=== PATIENT | female | born 1975 | race Caucasian/White ===

== ENCOUNTER 2017-04-16 17:36 | Inpatient (IN) | payer OTHER ==
[~2017-04-16] VITALS: Ht 167.6 cm; Wt 70.0 kg
[2017-04-16 20:19] VITALS: PULSE 69; Ht 167.6 cm; Wt 70.0 kg
[2017-04-16 20:29] VITALS: BP 120/72; RESP 20
[2017-04-17] VITALS (11 sets, daily range): BP systolic 103–129; BP diastolic 61–70; PULSE 64–82; RESP 18–19
[2017-04-17] MEDS ORDERED: ACETAMINOPHEN 325 MG TAB PO PRN (01:30)
[2017-04-17] MEDS ORDERED: DOCUSATE SODIUM 100 MG CAP PO PRN (01:30)
[2017-04-17] MEDS ORDERED: NACL 0.9% 3 ML SYG IV SCH (01:30)
[2017-04-17] MEDS ORDERED: BISACODYL (EC) 5 MG TAB PO PRN (01:30)
[2017-04-17 02:21] LABS: CREATINE KINASE 34 IU/L (23-200)
[2017-04-17 02:34] LABS: CK-MB 0.31 ng/ml (0.0-2.4)
[2017-04-17 03:06] LABS: TROPONIN-I < 0.012 ng/ml (0.00-0.12)
[2017-04-17] MEDS: KETOROLAC 30 MG INJ IV PRN ×3 (05:04→18:17)
[2017-04-17] MEDS: FAMOTIDINE 20 MG TAB PO SCH ×2 (05:45→20:17)
--- NOTE | 2017-04-17 09:10 | HP ---
Date/Time of Note Date/Time of Note DATE: 04/17/17 TIME: 09:00 Assessment/Plan VTE Prophylaxis VTE Prophylaxis Intervention: SCD's Lines/Catheters IV Catheter Type (from Nrs): Peripheral IV Assessment/Plan Chief Complaint/Hosp Course This is a 40-year-old female being admitted to the telemetry floor for: #1 persistent headache: Complex migraine versus intracranial pathology versus anxiety versus other etiology. At the current time imaging studies appear within normal values except for an A1 segment anomaly seen on the CT of the head please see report for further details. On my exam she does not have any neurological deficits. She does report persistent headache. Will provide her right now with Toradol to see if she will get any pain relief. Will obtain an MRI of the brain with and without gadolinium. Will consult neurology for further imaging study recommendations. #2 prediabetes: We will check a hemoglobin A1c. #3 anxiety: Currently not taking any medications. #4 DVT and GI prophylaxis SCDs, acid haris Further treatment strategy will be implemented as per the clinical course Problems: HPI/ROS Admit Date/Time Admit Date/Time Apr 16, 2017 at 20:00 Hx of Present Illness Chief complaint: Headache 6 months This is a 41-year-old female who originally presented to [facility] with a headache which began 6 months ago and then was subsequently transferred to [facility]. Patient states that prior to 6 months ago she never had any headaches. She states that in the past she has been to [facility] 2 times after sustaining a fall with the first one being in September 2015 which at that time showed a CAT scan that was unremarkable. She also had a fall and hit her head approximately 6-7 months ago but did not get a CAT scan at that time. Patient also has a history of anxiety. Patient states that she has been having a headache constantly during the last several months. She states that is sharp to a pressure type sensation to the right head. She says that encompasses a total right head. For the last week she had numbness and tingling of her right foot and off and on of her right hand. Patient states that this morning she felt confused and she has been having difficulty at work concentrating and with memory issues. She also has been having trouble with numbers and words for the past 1-2 weeks. She also feels clumsy at times. She denies any photophobia or sound sensitivity and denies any tearing of her eyes. Allergies: NKDA Medications: None ROS Const: As per HPI Eyes : No pain discharge or redness or change in visual acuity ENT: No pain, sore throat, congestion, congestion, dysphagia or discharge Respiratory: No shortness of breath, cough, sputum, wheezing, or pleuritic pain Cardiovascular: No chest pain, palpitation, PND, or edema GI : no change in appetite, abdominal pain, nausea, vomiting, diarrhea, constipation, or change in the color his stool Genitourinary: No dysuria, hematuria, flank pain , discharge or CVA tenderness Musculoskeletal: No joint pain, back pain, neck pain, restricted range of motion in neck or joints Skin: No rash, bruising or hives Neuro: As per HPI Endocrine: No polyuria, polydipsia, temperature intolerance Psych: No hallucination, depression, anxiety or suicidal ideation PMH/Family/Social Past Medical History Anxiety, prediabetic Past Surgical History Past Surgical Hx: no surgical history Family History Significant Family History: no pertinent family hx Social History Alcohol Use: rarely (1 cigarette a day) Smoking Status: Current some day smoker Exam/Review of Systems Vital Signs Vitals Vital Signs Date Time Temp Pulse Resp B/P Pulse Ox O2 Delivery O2 Flow Rate FiO2 04/17/17 08:30 64 04/17/17 07:58 98.6 18 107/64 97 Intake and Output 04/16/17 04/16/17 04/17/17 15:00 23:00 07:00 Intake Total 350 ml Balance 350 ml Exam Exam General: Patient is a well-developed female lying in bed, states she does have a right-sided headache HEENT: Atraumatic, normocephalic. The pupils are equal, round and reactive. Extraocular motor are intact Neck: Supple with full range of motion. No rigidity or meningismus Chest: Nontender Lungs: Clear to auscultation bilaterally no crackles rales or wheezing Heart: Normal S1-S2, Regular rhythm and rate. Abdomen: Soft , nontender, nondistended , bowel sounds are present. No guarding no rebound tenderness , No masses or organomegaly. 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, otherwise no significant abnormalities CT of the head without contrast: Normal-appearing brain, mild sinus disease EKG: Normal sinus rhythm at approximately 7-[address] or T-wave abnormalities noted Medications Medications Current Medications Ondansetron HCl (Zofran Inj) 4 mg Q6H PRN IV NAUSEA AND/OR VOMITING; Start 04/17 at 01:30 Acetaminophen (Tylenol Tab) 650 mg Q6H PRN PO PAIN LEVEL 1-3 OR FEVER Last administered on 04/17/17 04:42; Admin Dose 650 MG; Start 04/17/17 at 01:30 Docusate Sodium (Colace) 100 mg Q12H PRN PO CONSTIPATION; Start 04/17/17 at 01: 30 Bisacodyl (Dulcolax) 5 mg DAILY PRN PO CONSTIPATION; Start 04/17/17 at 01:30 Famotidine (Pepcid) 20 mg Q12 PO Last administered on 04/17/17 05:45; Admin Dose 20 MG; Start 04/17/17 at 06:00 Ketorolac Tromethamine (Toradol) 30 mg Q6H PRN IV PAIN Last administered on 04/17 05:04; Admin Dose 30 MG; Start 04/17/17 at 05:00; Stop 04/18/17 at 05:00 VINAYAK ARRINGTON Apr 17, 2017 09:10
[2017-04-17 09:17] LABS: CREATINE KINASE 28 IU/L (23-200)
[2017-04-17 09:30] LABS: CK-MB 0.23 ng/ml (0.0-2.4)
[2017-04-17 09:34] LABS: TROPONIN-I < 0.012 ng/ml (0.00-0.12)
--- NOTE | 2017-04-17 12:04 | CONS ---
Date/Time of Note Date/Time of Note DATE: 04/17/17 TIME: 11:58 Assessment/Plan Assessment/Plan Chief Complaint/Hosp Course 41 year old female with history of anxiety, diffuse pain/ fibromyalgia? 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 Recommendations: basic rheumatologic labs ESR, CRP, Anti- Ds DNA, Rheumatoid Factor, Antiphospholipid MRI Brain w w/o contrast may benefit from occipital nerve block, trigger point injections w pain management start low dose Topamax 25 mg daily will need to establish care and follow up with neurology as outpatient as well Problems: Consultation Date/Type/Reason Admit Date/Time Apr 16, 2017 at 20:00 Date of Consultation: Apr 17, 2017 Type of Consultation: Neurology Reason for Consultation CHAVEZ 6 monhs Referring Provider: VINAYAK ARRINGTON Hx of Present Illness 41 year old female with history of chronic diffuse pain was receiving outpatient rheumatology work up p/w headaches since this past October. She reports her headaches began after starting a new job back in October began having pain in the right side of her neck and experiences pain usually daily throughout her head a/w blurred vision with some numbness on right side of her body. 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 Yesterday while at work she began having difficulty concentrating, reported trouble with numbers and words past couple weeks. No fevers/ recent illness/sick contacts. Further imaging pending. 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, DTR's symmetric (right occipital tenderness), nl mental status, nl speech, nl strength Results Results 24 hrs Laboratory Tests Test 04/17/17 01:55 04/17/17 07:53 Creatine Kinase 34 28 Creatine Kinase Index 0.9 0.8 Creatinine Kinase MB (Mass) 0.31 0.23 Troponin I < 0.012 < 0.012 Medications Medications Current Medications Ondansetron HCl (Zofran Inj) 4 mg Q6H PRN IV NAUSEA AND/OR VOMITING; Start 04/17 at 01:30 Acetaminophen (Tylenol Tab) 650 mg Q6H PRN PO PAIN LEVEL 1-3 OR FEVER Last administered on 04/17/17 04:42; Admin Dose 650 MG; Start 04/17/17 at 01:30 Docusate Sodium (Colace) 100 mg Q12H PRN PO CONSTIPATION; Start 04/17/17 at 01: 30 Bisacodyl (Dulcolax) 5 mg DAILY PRN PO CONSTIPATION; Start 04/17/17 at 01:30 Famotidine (Pepcid) 20 mg Q12 PO Last administered on 04/17/17 05:45; Admin Dose 20 MG; Start 04/17/17 at 06:00 Ketorolac Tromethamine (Toradol) 30 mg Q6H PRN IV PAIN Last administered on 04/17 05:04; Admin Dose 30 MG; Start 04/17/17 at 05:00; Stop 04/18/17 at 05:00 TRINI ZIEGLER MD Apr 17, 2017 12:04
--- NOTE | 2017-04-17 15:06 | RADRPT ---
Echocardiogram Report Patient Name: JCARLOS WHITAKER Gender: Female Date: 1975 Study Date: 17-Apr-2017 Project Crew Worker: Mony Abrams [facility] Location: [id number] Ref. Physician: VINAYAK ARRINGTON Quality: Good Procedures: Transthoracic echocardiogram with complete 2D, M-Mode, and doppler examination. Indications: possible Transient Ischemic Attack. 2D/M Mode Doppler Measurement Value Normal Ranges Measurement Value Normal Ranges LVIDd 2D 4.8 3.5 - 5.6 cm AV Peak Stephen 1.2 m/sec LVIDs 2D 3.4 2.1 - 4.1 cm AV Peak PG 5.7 mmHg LVPWd 2D 0.7 0.6 - 1.1 cm LVOT Peak Stephen 1.0 m/sec IVSd 2D 0.7 0.6 - 1.1 cm LVOT Peak PG 3.7 mmHg AoR Diam 2D 2.5 2.0 - 3.7 cm MV E Peak Stephen 0.9 m/sec EDV 2D 109.1 cm3 MV A Peak Stephen 0.7 m/sec ESV 2D 39.1 cm3 MV E/A 1.3 LA Dimen 2D 2.7 2.3 - 4.0 cm MV Decel Time 205 msec MV Decel Dickson 4 MV E/A 1.3 TR Peak Stephen 1.6 m/sec TR Peak PG 9.7 mmHg RVSP 13.0 mmHg Findings Left Ventricle: Normal left ventricular systolic function. Normal left ventricular cavity size. Normal left ventricular wall thickness. Ejection fraction is visually estimated at 60 %. Tissue Doppler/Mitral Doppler indices are within normal limits. Right Ventricle: Normal right ventricular size. Normal right ventricular systolic function. Left Atrium: The left atrium is normal in size. Right Atrium: The right atrium is normal in size. Mitral Valve: Normal appearance and function of the mitral valve with trace physiologic regurgitation. Aortic Valve: Normal appearance of the aortic valve. No significant aortic stenosis or insufficiency. Tricuspid Valve: Normal appearance of the tricuspid valve. Estimated peak PA systolic pressure 13 mmHg. There is trace tricuspid regurgitation. Pulmonic Valve: Normal pulmonic valve appearance. There is trace pulmonic regurgitation. Pericardium: Normal pericardium with no significant pericardial effusion. Aorta: Normal aortic root. IVC: Normal size and normal respiratory collapse consistent with normal right atrial pressure. Conclusions 1.Normal left ventricular systolic function. Normal left ventricular cavity size. Normal left ventricular wall thickness. Ejection fraction is visually estimated at 60 %. Tissue Doppler/Mitral Doppler indices are within normal limits. 2.Normal right ventricular size. Normal right ventricular systolic function. 3.The left atrium is normal in size. 4.The right atrium is normal in size. 5.No significant valvular stenosis or regurgitation seen. 6.Normal pericardium with no significant pericardial effusion. Electronically Signed By: Amando Omalley 17-Apr-2017 15:06:40 -0700 Patient Name: JCARLOS WHITAKER Study Date: 17-Apr-2017 [id number]
--- NOTE | 2017-04-17 16:42 | QN ---
Documentation Comment S: Patient seen and examined at bedside. She states the Toradol has been helping her headache slightly but still right sided and constant with numbness of right face and RUE as well as R foot. Does admit to blurred vision bilaterally but denies any difficulty with eating. Headache began about 6-7 months after a mechanical fall. She denies any LOC. She has been told in the past she should be seen by Rheumatology but due to insurance issues, was never able to follow up. Denies any chest pain, shortness of breath, vomiting, or abdominal issues. O: VSS General: awake and alert, fatigued HEENT: EOMI intact, no tenderness with palpation of temples CVS: regular rate and rhythm Lungs: CTA b/l, no murmurs Ext: moving all extremities neuro: diminished sensation right UE A/P 1. 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 Will try to avoid opioids secondary to causing rebound headaches - ESR and CRP negative. - Rheum workup pending - TSH ordered CHANDRAKANT HARE MD Apr 17, 2017 16:42
[2017-04-17] MEDS: ONDANSETRON 4 MG INJ IV PRN (18:17)
[2017-04-17] MEDS: TOPIRAMATE 25 MG TAB PO SCH (20:17)
[2017-04-17] MEDS ORDERED: CAFFEINE 200 MG PO ONE ×2 (20:30→22:00)
[2017-04-17] MEDS ORDERED: CAFFEINE 200 MG PO PRN (22:00)
[2017-04-18] VITALS (10 sets, daily range): BP systolic 96–115; BP diastolic 57–76; PULSE 62–84; RESP 16–18
[2017-04-18] MEDS: ONDANSETRON 4 MG INJ IV PRN (04:45)
[2017-04-18] MEDS: KETOROLAC 30 MG INJ IV PRN ×2 (04:47→11:37)
[2017-04-18 08:33] LABS: BASOPHILS % 0.4 % (0.0-2.0); EOSINOPHILS # 0.1 10^3/ul (0.0-0.5); EOSINOPHILS % 1.2 % (0.0-7.0); HEMATOCRIT 35.8 % (37.0-47.0); HEMOGLOBIN 11.4 g/dl (12.0-16.0); LYMPHOCYTES # 2.6 10^3/ul (0.8-2.9); LYMPHOCYTES % 34.3 % (15.0-51.0); MEAN CORPUSCULAR HEMOGLOBIN 29.1 pg (29.0-33.0); MEAN CORPUSCULAR HGB CONC 31.8 g/dl (32.0-37.0); MEAN CORPUSCULAR VOLUME 91.3 fl (82.0-101.0); MEAN PLATELET VOLUME 9.8 fl (7.4-10.4); MONOCYTE # 0.4 10^3/ul (0.3-0.9); MONOCYTES % 4.6 % (0.0-11.0); NEUTROPHILS % 59.2 % (39.0-77.0); PLATELET COUNT 327 10^3/UL (140-415); RED BLOOD COUNT 3.92 10^6/ul (4.20-5.40); WHITE BLOOD COUNT 7.6 10^3/ul (4.8-10.8)
[2017-04-18] MEDS: FAMOTIDINE 20 MG TAB PO SCH ×2 (08:43→20:14)
[2017-04-18 09:07] LABS: ALBUMIN 3.7 g/dl (3.3-4.9); ALBUMIN/GLOBULIN RATIO 1.19; BILIRUBIN,INDIRECT 0.2 mg/dl (0-1.1); BILIRUBIN,TOTAL 0.2 mg/dl (0.2-1.3); CALCIUM 9.2 mg/dl (8.4-10.2); CHOL/HDL RATIO 3.4 RATIO; CREATININE 0.77 mg/dl (0.44-1.00); MAGNESIUM 2.1 mg/dl (1.7-2.5); POTASSIUM 4.2 mmol/L (3.5-5.1); TOTAL PROTEIN 6.8 g/dl (6.1-8.1)
[2017-04-18 09:33] LABS: THYROID STIMULATING HORMONE 2.25 MIU/L (0.465-4.680)
--- NOTE | 2017-04-18 11:50 | CONS ---
Date/Time of Note Date/Time of Note DATE: 04/18/17 TIME: 11:48 Consult Date/Type/Reason Admit Date/Time Apr 16, 2017 at 20:00 Initial Consult Date 04/17/17 Type of Consultation: Neurology Reason for Consultation intractable headaches x 6 mo. 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, DTR's symmetric (right occipital tenderness), nl mental status, nl speech, nl strength Results/Medications Result Diagram: 04/18/17 0804 04/18/17 0804 Results 24 hrs Laboratory Tests Test 04/17/17 12:47 04/17/17 13:00 04/18/17 08:04 C-Reactive Protein < 0.5 Erythrocyte Sedimentation Rate 12 White Blood Count 7.6 Red Blood Count 3.92 L Hemoglobin 11.4 L Hematocrit 35.8 L Mean Corpuscular Volume 91.3 Mean Corpuscular Hemoglobin 29.1 Mean Corpuscular Hemoglobin Concent 31.8 L Red Cell Distribution Width 13.0 Platelet Count 327 Mean Platelet Volume 9.8 Neutrophils % 59.2 Lymphocytes % 34.3 Monocytes % 4.6 Eosinophils % 1.2 Basophils % 0.4 Nucleated Red Blood Cells % 0.0 Neutrophils # (Manual) 4.5 Lymphocytes # 2.6 Monocytes # 0.4 Eosinophils # 0.1 Basophils # 0.0 Nucleated Red Blood Cells # 0.0 Sodium Level 137 Potassium Level 4.2 Chloride Level 109 Carbon Dioxide Level 21 Anion Gap 11 Blood Urea Nitrogen 14 Creatinine 0.77 Glucose Level 97 Hemoglobin A1c 5.1 Calcium Level 9.2 Magnesium Level 2.1 Total Bilirubin 0.2 Direct Bilirubin 0.00 Indirect Bilirubin 0.2 Aspartate Amino Transf (AST/SGOT) 29 Alanine Aminotransferase (ALT/SGPT) 18 Alkaline Phosphatase 39 L Total Protein 6.8 Albumin 3.7 Globulin 3.10 Albumin/Globulin Ratio 1.19 Triglycerides Level 73 Cholesterol Level 177 LDL Cholesterol, Calculated 111 HDL Cholesterol 51 Cholesterol/HDL Ratio 3.4 Thyroid Stimulating Hormone (TSH) 2.250 Medications Current Medications Ondansetron HCl (Zofran Inj) 4 mg Q6H PRN IV NAUSEA AND/OR VOMITING Last administered on 04/18/17 04:45; Admin Dose 4 MG; Start 04/17/17 at 01:30 Acetaminophen (Tylenol Tab) 650 mg Q6H PRN PO PAIN LEVEL 1-3 OR FEVER Last administered on 04/17/17 04:42; Admin Dose 650 MG; Start 04/17/17 at 01:30 Docusate Sodium (Colace) 100 mg Q12H PRN PO CONSTIPATION; Start 04/17/17 at 01: 30 Bisacodyl (Dulcolax) 5 mg DAILY PRN PO CONSTIPATION; Start 04/17/17 at 01:30 Famotidine (Pepcid) 20 mg Q12 PO Last administered on 04/18/17 08:43; Admin Dose 20 MG; Start 04/17/17 at 06:00 Topiramate (Topamax) 25 mg QHS PO Last administered on 04/17/17 20:17; Admin Dose 25 MG; Start 04/17/17 at 21:00 Ketorolac Tromethamine (Toradol) 30 mg Q6H PRN IV PAIN Last administered on 04/18 11:37; Admin Dose 30 MG; Start 04/18/17 at 07:35; Stop 04/21/17 at 07:34 Acetaminophen/ Butalbital/ Caffeine (Fioricet) 1 tab Q6H PRN PO PAIN; Start 04/18/17 at 10:30 Assessment/Plan Chief Complaint/Hosp Course 41 year old female with history of anxiety, diffuse pain/ fibromyalgia? 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 Will give her a dose of Decadron 10 mg x1, Reglan 10 mg x1, and IV Depakote 1 gram for acute migraine treatment Recommendations: basic rheumatologic labs ESR, CRP (wnl) Anti- Ds DNA, Rheumatoid Factor, Antiphospholipid MRI Brain w w/o contrast pending may benefit from occipital nerve block, trigger point injections w pain management start low dose Topamax 25 mg daily will recommend increase in a week to 50 mg qhs if tolerating will need to establish care and follow up with neurology as outpatient as well Problems: TRINI ZIEGLER MD Apr 18, 2017 11:50
[2017-04-18] MEDS ORDERED: DEXAMETHASONE 10 MG/ML 1 ML INJ IV ONE (12:00)
[2017-04-18] MEDS ORDERED: VALPROATE INJ 1,000 MG in SOD CHLORIDE 0.9% 100 ML IVPB SCH (13:00)
[2017-04-18] MEDS ORDERED: METOCLOPRAMIDE 10 MG INJ IV SCH (13:00)
[2017-04-18] MEDS ORDERED: DEXAMETHASONE 10 MG/ML 1 ML INJ IV SCH ×2 (13:00→14:30)
[2017-04-18] MEDS ORDERED: LORAZEPAM 2 MG INJ IV ONE (15:00)
--- NOTE | 2017-04-18 16:47 | RADRPT ---
PROCEDURE: MR Brain with and without contrast. CLINICAL INDICATION: Headache and memory loss. History of trauma 1 year ago. TECHNIQUE: An MRI of the brain was performed on a 1.5 michael scanner utilizing the following sequen jamal: Sagittal and axial T1 weighted, axial T2 weighted, coronal GRE, axial diffusion weighted with A DC mapping, and post contrast axial and coronal T1 weighted and axial FLAIR. 10 ml of Magnevist was given intravenously without complication. COMPARISON: None. FINDINGS: No evidence of restricted diffusion to suggest acute or early subacute ischemic infarction. No evide nce of pathologic enhancement of the brain parenchyma, leptomeninges or dura. No hypointense signal abnormalities are seen on the GRE images to suggest the presence of blood degr adation products. The brain parenchyma is normal in signal intensity and morphology with preservation of chadwick white di fferentiation. The ventricles and subarachnoid spaces are age-appropriate in size. No evidence of intracranial hemorrhage, edema, mass effect, or shift. Mucosal thickening and mucus retention cyst/polyp in the left maxillary sinus. The posterior fossa contents, brainstem, craniocervical junction, seventh - eighth cranial nerve com plexes, orbits, remaining paranasal sinuses, and pituitary axis are unremarkable. No calvarial lesio n identified. Normal flow voids are visible in the proximal intracranial arteries and dural sinuses, indicating pa tency. IMPRESSION: 1. Normal pre and post-contrast MRI of the brain. RPTAT:AAJJ Physician Jatin Date Time Electronically viewed and signed by Physician Jatin on 04/18/2017 16:47 [place]/
--- NOTE | 2017-04-18 17:23 | PN ---
Date/Time of Note Date/Time of Note DATE: 04/18/17 TIME: 17:13 Assessment/Plan VTE Prophylaxis VTE Prophylaxis Intervention: SCD's Lines/Catheters IV Catheter Type (from Nrsg): Saline Lock Assessment/Plan Assessment/Plan 1. intractable headaches - neurology on board and recommendations appreciated. 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 - Rheum workup pending - TSH normal Subjective 24 Hr Interval Summary Free Text/Dictation Patient still experiencing headaches with only 2 hours of relief from the Toradol. She slept well last night which was the first time she slept through the night. She is anxious to find out the results of the imaging studies as well. Exam/Review of Systems Vital Signs Vitals Vital Signs Date Time Temp Pulse Resp B/P Pulse Ox O2 Delivery O2 Flow Rate FiO2 04/18/17 16:37 98.4 77 18 108/68 98 04/18/17 04:00 Room Air Intake and Output 04/17/17 04/17/17 04/18/17 15:00 23:00 07:00 Intake Total 450 ml Balance 450 ml Exam General: mild distress due to headache HEENT:NC/AT, PERRL, EOM intact Neck: Supple with full range of motion. No rigidity or meningismus Lungs: Clear to auscultation bilaterally no crackles rales or wheezing Heart: Normal S1-S2, Regular rhythm and rate. no murmur Abdomen: Soft , nontender, nondistended , bowel sounds are present. No guarding no rebound tenderness Neurologic: Normal mental status, speech normal, cranial nerves II through XII are intact, motor and sensory are intact, no focal weakness Results Result Diagram: 04/18/17 0804 04/18/17 0804 Results 24 hrs Laboratory Tests Test 04/18/17 08:04 White Blood Count 7.6 Red Blood Count 3.92 L Hemoglobin 11.4 L Hematocrit 35.8 L Mean Corpuscular Volume 91.3 Mean Corpuscular Hemoglobin 29.1 Mean Corpuscular Hemoglobin Concent 31.8 L Red Cell Distribution Width 13.0 Platelet Count 327 Mean Platelet Volume 9.8 Neutrophils % 59.2 Lymphocytes % 34.3 Monocytes % 4.6 Eosinophils % 1.2 Basophils % 0.4 Nucleated Red Blood Cells % 0.0 Neutrophils # (Manual) 4.5 Lymphocytes # 2.6 Monocytes # 0.4 Eosinophils # 0.1 Basophils # 0.0 Nucleated Red Blood Cells # 0.0 Sodium Level 137 Potassium Level 4.2 Chloride Level 109 Carbon Dioxide Level 21 Anion Gap 11 Blood Urea Nitrogen 14 Creatinine 0.77 Glucose Level 97 Hemoglobin A1c 5.1 Calcium Level 9.2 Magnesium Level 2.1 Total Bilirubin 0.2 Direct Bilirubin 0.00 Indirect Bilirubin 0.2 Aspartate Amino Transf (AST/SGOT) 29 Alanine Aminotransferase (ALT/SGPT) 18 Alkaline Phosphatase 39 L Total Protein 6.8 Albumin 3.7 Globulin 3.10 Albumin/Globulin Ratio 1.19 Triglycerides Level 73 Cholesterol Level 177 LDL Cholesterol, Calculated 111 HDL Cholesterol 51 Cholesterol/HDL Ratio 3.4 Thyroid Stimulating Hormone (TSH) 2.250 Medications Medications Current Medications Ondansetron HCl (Zofran Inj) 4 mg Q6H PRN IV NAUSEA AND/OR VOMITING Last administered on 04/18/17 04:45; Admin Dose 4 MG; Start 04/17/17 at 01:30 Acetaminophen (Tylenol Tab) 650 mg Q6H PRN PO PAIN LEVEL 1-3 OR FEVER Last administered on 04/17/17 04:42; Admin Dose 650 MG; Start 04/17/17 at 01:30 Docusate Sodium (Colace) 100 mg Q12H PRN PO CONSTIPATION; Start 04/17/17 at 01: 30 Bisacodyl (Dulcolax) 5 mg DAILY PRN PO CONSTIPATION; Start 04/17/17 at 01:30 Famotidine (Pepcid) 20 mg Q12 PO Last administered on 04/18/17 08:43; Admin Dose 20 MG; Start 04/17/17 at 06:00 Topiramate (Topamax) 25 mg QHS PO Last administered on 04/17/17 20:17; Admin Dose 25 MG; Start 04/17/17 at 21:00 Ketorolac Tromethamine (Toradol) 30 mg Q6H PRN IV PAIN Last administered on 04/18 11:37; Admin Dose 30 MG; Start 04/18/17 at 07:35; Stop 04/21/17 at 07:34 Acetaminophen/ Butalbital/ Caffeine (Fioricet) 1 tab Q6H PRN PO PAIN; Start 04/18/17 at 10:30 CHANDRAKANT HARE MD Apr 18, 2017 17:23
[2017-04-18] MEDS: LORATADINE 10 MG TAB PO SCH (18:43)
[2017-04-18] MEDS: FLUTICASONE 0.05% 16 GM NAS SPRAY NASAL SCH (20:14)
[2017-04-18] MEDS: TOPIRAMATE 25 MG TAB PO SCH (20:14)
[2017-04-19] VITALS (9 sets, daily range): BP systolic 92–113; BP diastolic 51–75; PULSE 73–84; RESP 18–19
[2017-04-19] MEDS: ACET/BUTAL/CAFF TAB PO PRN ×2 (02:58→10:59)
[2017-04-19] MEDS: KETOROLAC 30 MG INJ IV PRN ×2 (04:32→10:59)
--- NOTE | 2017-04-19 07:26 | RADRPT ---
PROCEDURE: MR Neck with and without contrast CLINICAL INDICATION: Left-sided neck pain. TECHNIQUE: Multiaxial multisequence MRI of the neck was performed before and following the intrave nous administration of 10 cc of Magnevist. COMPARISON: There are no similar studies submitted for comparison. FINDINGS: SKULL: The visualized portions of the brain are grossly unremarkable.The orbits are within normal li mits. There is complete left maxillary sinus sinusitis. There is minimal left ethmoid sinus mucosal thicke abdon. The bilateral mastoid air cells are within normal limits. PAROTID GLANDS: Unremarkable. SUBMANDIBULAR GLANDS: Unremarkable. THYROID GLAND: Unremarkable. LYMPH NODES: Multiple small lymph nodes are identified in the neck in levels I-V which are not patho logically enlarged or necrotic. The lymph nodes are relatively bilateral and symmetric in distributi on. AERODIGESTIVE TRACT: No primary aerodigestive tract lesion is identified. MUSCLES: The muscles are unremarkable. THORAX: The lung apices are unremarkable. OSSEOUS STRUCTURES: No destructive osseous lesion is identified. There are minimal degenerative currie ges within the cervical spine. IMPRESSION: 1. No mass or fluid collection. 2. No adenopathy. 3. Minimal degenerative changes. Further findings as detailed above. RPTAT: PP .Jamal Rosales MD, Date Time Electronically viewed and signed by .Jamal Rosales MD, on 04/19/2017 07:26 .F/
[2017-04-19 08:05] LABS: BASOPHILS % 0.1 % (0.0-2.0); HEMATOCRIT 33.2 % (37.0-47.0); HEMOGLOBIN 10.8 g/dl (12.0-16.0); LYMPHOCYTES # 1.9 10^3/ul (0.8-2.9); LYMPHOCYTES % 16.5 % (15.0-51.0); MEAN CORPUSCULAR HEMOGLOBIN 29.1 pg (29.0-33.0); MEAN CORPUSCULAR HGB CONC 32.5 g/dl (32.0-37.0); MEAN CORPUSCULAR VOLUME 89.5 fl (82.0-101.0); MONOCYTE # 0.3 10^3/ul (0.3-0.9); MONOCYTES % 2.9 % (0.0-11.0); NEUTROPHILS % 80.1 % (39.0-77.0); PLATELET COUNT 348 10^3/UL (140-415); RED BLOOD COUNT 3.71 10^6/ul (4.20-5.40); RED CELL DISTRIBUTION WIDTH 12.7 % (11.5-14.5); WHITE BLOOD COUNT 11.7 10^3/ul (4.8-10.8)
[2017-04-19 08:42] LABS: ALBUMIN 3.7 g/dl (3.3-4.9); CALCIUM 9.4 mg/dl (8.4-10.2); CREATININE 0.7 mg/dl (0.44-1.00); PHOSPHORUS 3.3 mg/dl (2.5-4.9)
[2017-04-19] MEDS: FAMOTIDINE 20 MG TAB PO SCH (09:14)
[2017-04-19] MEDS: LORATADINE 10 MG TAB PO SCH (09:14)
[2017-04-19] MEDS: FLUTICASONE 0.05% 16 GM NAS SPRAY NASAL SCH (09:15)
--- NOTE | 2017-04-19 11:20 | CONS ---
Date/Time of Note Date/Time of Note DATE: 04/19/17 TIME: 11:19 Consult Date/Type/Reason Admit Date/Time Apr 16, 2017 at 20:00 Initial Consult Date 04/17/17 Type of Consultation: Neurology Reason for Consultation intractable migraine Ordering Provider: VINAYAK ARRINGTON Subjective CHAVEZ improved with Depakote, Decadron and Reglan feels relieved pressure on right side of her head Objective Vital Signs Date Time Temp Pulse Resp B/P Pulse Ox O2 Delivery O2 Flow Rate FiO2 04/19/17 08:24 84 04/19/17 07:49 98.4 18 98/51 95 04/18/17 04:00 Room Air Intake and Output 04/18/17 04/18/17 04/19/17 15:00 23:00 07:00 Intake Total 870 ml Balance 870 ml Exam Constitutional: alert, oriented, well developed Psych: anxiety Neurological: CONTRACT MODELER II-XII intact, DTR's symmetric (right occipital tenderness improved), nl mental status, nl speech, nl strength Results/Medications Result Diagram: 04/19/17 0704 04/19/17 0704 Results 24 hrs Laboratory Tests Test 04/19/17 07:04 White Blood Count 11.7 #H Red Blood Count 3.71 L Hemoglobin 10.8 L Hematocrit 33.2 L Mean Corpuscular Volume 89.5 Mean Corpuscular Hemoglobin 29.1 Mean Corpuscular Hemoglobin Concent 32.5 Red Cell Distribution Width 12.7 Platelet Count 348 Mean Platelet Volume 10.0 Neutrophils % 80.1 H Lymphocytes % 16.5 Monocytes % 2.9 Eosinophils % 0.0 Basophils % 0.1 Nucleated Red Blood Cells % 0.0 Neutrophils # (Manual) 9.4 H Lymphocytes # 1.9 Monocytes # 0.3 Eosinophils # 0.0 Basophils # 0.0 Nucleated Red Blood Cells # 0.0 Sodium Level 137 Potassium Level 4.0 Chloride Level 106 Carbon Dioxide Level 22 Anion Gap 13 Blood Urea Nitrogen 14 Creatinine 0.70 Glucose Level 136 Calcium Level 9.4 Phosphorus Level 3.3 Magnesium Level 2.0 Albumin 3.7 Medications Current Medications Ondansetron HCl (Zofran Inj) 4 mg Q6H PRN IV NAUSEA AND/OR VOMITING Last administered on 04/18/17t 04:45; Admin Dose 4 MG; Start 04/17/17 at 01:30 Acetaminophen (Tylenol Tab) 650 mg Q6H PRN PO PAIN LEVEL 1-3 OR FEVER Last administered on 04/17/17 04:42; Admin Dose 650 MG; Start 04/17/17 at 01:30 Docusate Sodium (Colace) 100 mg Q12H PRN PO CONSTIPATION; Start 04/17/17 at 01: 30 Bisacodyl (Dulcolax) 5 mg DAILY PRN PO CONSTIPATION; Start 04/17/17 at 01:30 Famotidine (Pepcid) 20 mg Q12 PO Last administered on 04/19/17 09:14; Admin Dose 20 MG; Start 04/17/17 at 06:00 Topiramate (Topamax) 25 mg QHS PO Last administered on 04/18/17 20:14; Admin Dose 25 MG; Start 04/17/17 at 21:00 Ketorolac Tromethamine (Toradol) 30 mg Q6H PRN IV PAIN Last administered on 04/19 10:59; Admin Dose 30 MG; Start 04/18/17 at 07:35; Stop 04/21/17 at 07:34 Acetaminophen/ Butalbital/ Caffeine (Fioricet) 1 tab Q6H PRN PO PAIN Last administered on 04/19/17 10:59; Admin Dose 1 TAB; Start 04/18/17 at 10:30 Loratadine (Claritin) 10 mg DAILY PO Last administered on 04/19/17 09:14; Admin Dose 10 MG; Start 04/18/17 at 18:00 Fluticasone Propionate (Flonase 0.05% Nasal) 1 spray DAILY NASAL Last administered on 04/19/17 09:15; Admin Dose 1 SPRAY; Start 04/18/17 at 19:00 Assessment/Plan Chief Complaint/Hosp Course 41 year old female with history of anxiety, diffuse pain/ fibromyalgia? 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 Will give her a dose of Decadron 10 mg x1, Reglan 10 mg x1, and IV Depakote 1 gram for acute migraine treatment Recommendations: basic rheumatologic labs ESR, CRP (wnl) Anti- Ds DNA, Rheumatoid Factor, Antiphospholipid MRI Brain w w/o is normal may benefit from occipital nerve block, trigger point injections w pain management Topamax 25 mg qhs can increase it to 50 mg qhs in one week, outpatient follow up with neurology in one week discharge planning Problems: TRINI ZIEGLER MD Apr 19, 2017 11:20
--- NOTE | 2017-04-19 12:50 | PN ---
Date/Time of Note Date/Time of Note DATE: 04/19/17 TIME: 12:50 Assessment/Plan VTE Prophylaxis VTE Prophylaxis Intervention: LMWH Lines/Catheters IV Catheter Type (from Nrs): Saline Lock Assessment/Plan Assessment/Plan 1. Intractable headaches - neurology on board and recommendations appreciated. Given Decadron/Reglan/ Depakote with relief - MRI brain and neck shows no acute issues which can explain her symptoms. 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 - Rheum workup pending - TSH normal 2. Cervicalgia - RUE numbness could be due to muscle spasms - Will try Baclofen 5mg TID 3. Acute rhinitis - Throat discomfort may be secondary to post nasal drip - Claritin daily - Flonase BID as tolerated 4. Disposition - cleared for discharge home with follow up with Neurology and establish care [facility] PCP >30 mins was spent with patient discussing her discharge plan and instructions Subjective 24 Hr Interval Summary Free Text/Dictation Patient seen and examined. States her headaches has improved significantly after given the decadron/dilantin/reglan combo. Still experiencing numbness of face and pain in neck area. Denies fevers, chills, nausea, vomiting, chest pain , or shortness of breath. Exam/Review of Systems Vital Signs Vitals Vital Signs Date Time Temp Pulse Resp B/P Pulse Ox O2 Delivery O2 Flow Rate FiO2 04/19/17 12:31 73 04/19/17 11:23 98.4 18 96/60 100 04/18/17 04:00 Room Air Intake and Output 04/18/17 04/18/17 04/19/17 14:59 22:59 06:59 Intake Total 870 ml Balance 870 ml Exam General: no acute distress, awake and alert HEENT:NC/AT, PERRL, EOM intact Neck: Supple with full range of motion. No rigidity or meningismus Lungs: Clear to auscultation bilaterally no crackles rales or wheezing Heart: Normal S1-S2, Regular rhythm and rate. no murmur Abdomen: Soft , nontender, nondistended , bowel sounds are present. No guarding no rebound tenderness Neurologic: Normal mental status, speech normal, cranial nerves II through XII are intact, motor and sensory are intact, no focal weakness Results Result Diagram: 04/19/17 0704 04/19/17 0704 Results 24 hrs Laboratory Tests Test 04/19/17 07:04 White Blood Count 11.7 #H Red Blood Count 3.71 L Hemoglobin 10.8 L Hematocrit 33.2 L Mean Corpuscular Volume 89.5 Mean Corpuscular Hemoglobin 29.1 Mean Corpuscular Hemoglobin Concent 32.5 Red Cell Distribution Width 12.7 Platelet Count 348 Mean Platelet Volume 10.0 Neutrophils % 80.1 H Lymphocytes % 16.5 Monocytes % 2.9 Eosinophils % 0.0 Basophils % 0.1 Nucleated Red Blood Cells % 0.0 Neutrophils # (Manual) 9.4 H Lymphocytes # 1.9 Monocytes # 0.3 Eosinophils # 0.0 Basophils # 0.0 Nucleated Red Blood Cells # 0.0 Sodium Level 137 Potassium Level 4.0 Chloride Level 106 Carbon Dioxide Level 22 Anion Gap 13 Blood Urea Nitrogen 14 Creatinine 0.70 Glucose Level 136 Calcium Level 9.4 Phosphorus Level 3.3 Magnesium Level 2.0 Albumin 3.7 Medications Medications Current Medications Ondansetron HCl (Zofran Inj) 4 mg Q6H PRN IV NAUSEA AND/OR VOMITING Last administered on 04/18/17 04:45; Admin Dose 4 MG; Start 04/17/17 at 01:30 Acetaminophen (Tylenol Tab) 650 mg Q6H PRN PO PAIN LEVEL 1-3 OR FEVER Last administered on 04/17/17 04:42; Admin Dose 650 MG; Start 04/17/17 at 01:30 Docusate Sodium (Colace) 100 mg Q12H PRN PO CONSTIPATION; Start 04/17/17 at 01: 30 Bisacodyl (Dulcolax) 5 mg DAILY PRN PO CONSTIPATION; Start 04/17/17 at 01:30 Famotidine (Pepcid) 20 mg Q12 PO Last administered on 04/19/17 09:14; Admin Dose 20 MG; Start 04/17/17 at 06:00 Topiramate (Topamax) 25 mg QHS PO Last administered on 04/18/17 20:14; Admin Dose 25 MG; Start 04/17/17 at 21:00 Ketorolac Tromethamine (Toradol) 30 mg Q6H PRN IV PAIN Last administered on 04/19 10:59; Admin Dose 30 MG; Start 04/18/17 at 07:35; Stop 04/21/17 at 07:34 Acetaminophen/ Butalbital/ Caffeine (Fioricet) 1 tab Q6H PRN PO PAIN Last administered on 04/19/17 10:59; Admin Dose 1 TAB; Start 04/18/17 at 10:30 Loratadine (Claritin) 10 mg DAILY PO Last administered on 04/19/17 09:14; Admin Dose 10 MG; Start 04/18/17 at 18:00 Fluticasone Propionate (Flonase 0.05% Nasal) 1 spray DAILY NASAL Last administered on 04/19/17 09:15; Admin Dose 1 SPRAY; Start 04/18/17 at 19:00 CHANDRAKANT HARE MD Apr 19, 2017 12:50
--- NOTE | 2017-04-19 13:49 | PDOCDIS ---
Discharge Instructions DIAGNOSIS Discharge Diagnosis Intractable headache with neurological symptoms CONDITION Patient Condition: Good HOME CARE INSTRUCTIONS: Diet Instructions: Regular ACTIVITY: Activity Restrictions: No Restrictions FOLLOW UP/APPOINTMENTS Follow-up Plan - Take Topamax 25mg at night and increase in 5 days to 50mg (2 tablets) - Follow up with Neurology in 1-2 weeks - Take Baclofen up to three times a day for muscle spasms. If taking this medication daily, do not abruptly stop. you will need to be tapered off the medication - Use Flonase up to twice a day, 1 spray in each nostril. If experiencing excess dryness, may use Simple saline spray prior to Flonase use - You will need to establish a PCP REFERRALS Referring Provider: TRINI ZIEGLER MD Other Referrals Office Address [facility], [facility]. [address] [place] [address], [address] [place] [address] Office Office SCHOOL/WORK RELEASE May return to School/Work on: Apr 22, 2017 May return to School/Work with: No Restrictions CHANDRAKANT HARE MD Apr 19, 2017 13:49
[2017-04-19] MEDS ORDERED: BACL10TA PO (13:52)
[2017-04-19] MEDS ORDERED: LORA10TA3 PO (13:54)
[2017-04-19] MEDS ORDERED: TOPI25TA51 PO (13:54)
[2017-04-19] MEDS ORDERED: FLUT16SP17 NASAL (13:54)
[2017-04-19] MEDS ORDERED: BACLOFEN 10 MG TAB PO SCH (14:00)
[2017-04-19 14:12] LABS: ANA SCREEN NEGATIVE (NEGATIVE); MYELOPEROXIDASE ANTIBODY <1.0 AI; PROTEINASE-3 ANTIBODY <1.0 AI
--- NOTE | 2017-04-30 07:53 | DS ---
Date/Time of Note Date/Time of Note DATE: 04/30/17 TIME: 07:45 Discharge Summary Admission/Discharge Info Admit Date/Time Apr 16, 2017 at 20:00 Discharge Date/Time Apr 19, 2017 at 17:00 Discharge Diagnosis Intractable headache with neurological symptoms Patient Condition: Good Consults Neurology, Dr. Beverly Hx of Present Illness Chief complaint: Headache 6 months This is a 41-year-old female who originally presented to [facility] with a headache which began 6 months ago and then was subsequently transferred to [facility]. Patient states that prior to 6 months ago she never had any headaches. She states that in the past she has been to [facility] 2 times after sustaining a fall with the first one being in September 2015 which at that time showed a CAT scan that was unremarkable. She also had a fall and hit her head approximately 6-7 months ago but did not get a CAT scan at that time. Patient also has a history of anxiety. Patient states that she has been having a headache constantly during the last several months. She states that is sharp to a pressure type sensation to the right head. She says that encompasses a total right head. For the last week she had numbness and tingling of her right foot and off and on of her right hand. Patient states that this morning she felt confused and she has been having difficulty at work concentrating and with memory issues. She also has been having trouble with numbers and words for the past 1-2 weeks. She also feels clumsy at times. She denies any photophobia or sound sensitivity and denies any tearing of her eyes. Hospital Course Patient was admitted and Neurology was consulted. MRI of brain and neck was performed which was normal. She was given one dose of Decadron 10 mg x1, Reglan 10 mg x1, and IV Depakote 1 gram for acute migraine treatment which did provide relief. A basic rheum workup was performed which was all within normal limits. She was started on Topamax 25mg qhs with plans to follow up with Neurology for titration of the medication. She was also advised to follow up with pain management for an occipital nerve block and trigger point injections for her neck pain. She was started on Baclofen for relief of muscle spasms in her neck and instructed to continue stretching. Her headache was improving and she was discharged home in good condition. Home Meds Active Scripts Fluticasone Propionate* (Fluticasone Propionate* Nasal) 50 Mcg/[place] - 16 Gm [place].susp, 1 SPRAY NASAL DAILY for 30 Days, #1 BOT Use 1 spray in each nostril up to twice a day Prov:CHANDRAKANT HARE MD 04/19/17 Topiramate* (Topamax*) 25 Mg Tablet, 25 MG PO QHS for 30 Days, #60 TAB Take one tablet for 5 more days then increase to 2 tablets (50mg) daily at night Prov:CHANDRAKANT HARE MD 04/19/17 Loratadine* (Loratadine*) 10 Mg Tablet, 10 MG PO DAILY for 30 Days, #30 TAB Take one tablet daily by mouth Prov:CHANDRAKANT HARE MD 04/19/17 Baclofen* (Baclofen*) 10 Mg Tablet, 5 MG PO TID for 30 Days, #60 TAB Take half tablet (5mg) by mouth three times a day for muscle spasms Prov:CHANDRAKANT HARE MD 04/19/17 Follow-up Plan Follow up with Neurology in 1-2 weeks. She was instructed to increase her Topamax dose from 25mg to 50mg in 1 week. Continue using Claritin and nasal spray for acute rhinitis symptoms If symptoms return or worsen, return to the ED Primary Care Provider Miguel Patel MD Time spent on discharge: > 30 minutes CHANDRAKANT HARE MD Apr 30, 2017 07:52
== END 2017-04-19 17:00 | disposition home or self-care (01) | DRG 103 ==
LOC: ICU 18:38 → UNDOADMIN 18:38 → MS4 20:00
PROVIDERS: ADMIT Family Medicine; ATTEND Family Medicine
DX: R51 Headache (principal); F41.9 Anxiety disorder, unspecified; R73.03 Prediabetes; J00 Acute nasopharyngitis [common cold]; M54.2 Cervicalgia
CPT/HCPCS: 70540; 70553; 80053; 80061; 80069; 82550; 82553; 83036; 83735; 84443; 84484; 85025; 85613; 85651; 86021; 86038; 86140; 86226; 86430; 93306; J1100; J1885; J2060; J2405; J2765